=== PATIENT | female | born 1980 | race Caucasian/White ===

== ENCOUNTER 2018-01-13 11:13 | Emergency (ER) | payer OTHER ==
[~2018-01-13] VITALS: Ht 152.4 cm; Wt 88.0 kg
[~2018-01-13 11:13] MED LIST: ADVAIR 100-501 EACH; GLUMETZA1000 MG; MOTRIN800 MG PO; SEPTRA DS TABLE1 TAB PO; SINGULAIR10 MG; SYNTHROID125 MCG; TRILIPIX135 MG; ULTRACET PO
[2018-01-13] MEDS ORDERED: IMURAN50 MG PO (11:51)
[2018-01-13] MEDS ORDERED: SYNTHROID200 MCG PO (11:51)
[2018-01-13] MEDS ORDERED: NORFLEX100MG PO (15:56)
[2018-01-13] MEDS ORDERED: KETO10TA2 PO (15:56)
== END 2018-01-13 16:15 | disposition home or self-care (01) ==
LOC: ER 11:13
DX: M54.5 Low back pain (principal)